=== PATIENT | male | born 1960 | race Caucasian/White ===

== ENCOUNTER 2019-03-29 10:41 | Emergency (ER) | payer MEDICARE ==
--- NOTE | 2019-03-29 10:48 | Emergency Department Record ---
History of Present Illness - General Chief Complaint: Back Pain/Injury Stated Complaint: BACK PAIN Time Seen by Provider: 03/29/19 10:47 Source: Patient Mode of Arrival: Ambulatory Limitations: No limitations - History of Present Illness Initial Comments: 59 yo male presents with back pain for about two weeks. No weakness, numbness, tingling. No changes in his bladder or bowel functions. No hematuria. The pain is located over the left flank lower on the left. No radiation to the legs. No abdominal pain or abdominal pulsations. The pain occurred two weeks ago with bending and twisting. He has chronic pain but states the location is different. He had back surgery in [place] 22 years ago. He states he does not have a designated PCP. MD Complaint: Back pain -: Week(s) (2) Place: Home Radiation: None Severity: Moderate Quality: Aching Consistency: Constant Improves With: Immobilization Worsens With: Movement, Walking Associated Symptoms: Denies other symptoms - Related Data Previous Rx's Medication Instructions Recorded Cyclobenzaprine HCl [Flexeril] 10 mg PO TID #20 tablet 03/29/19 Oxycodone HCl/Acetaminophen 1 tab PO Q6H PRN #8 tablet 03/29/19 [Percocet 10mg/325mg] Allergies Allergy/AdvReac Type Severity Reaction Status Date / Time ibuprofen AdvReac Mild NAUSEA AND Verified 03/29/19 10:51 VOMITING Review of Systems Constitutional: Denies: Chills, Fever, Malaise, Weakness Eyes: Denies: Eye discharge, Eye pain, Photophobia, Vision change ENT: Denies: Congestion, Throat pain Respiratory: Denies: Cough, Dyspnea, Hemoptysis, Wheezes Cardiovascular: Denies: Chest pain, Palpitations, Syncope Endocrine: Denies: Fatigue, Polydipsia, Polyuria Gastrointestinal: Denies: Abdominal pain, Diarrhea, Nausea, Vomiting Genitourinary: Denies: Dysuria, Frequency, Hematuria, Incontinence, Retention Musculoskeletal: Reports: As per HPI, Back pain, Myalgia. Denies: Joint swelling, Neck pain Skin: Denies: Bruising, Change in color, Rash Neurological: Denies: Abnormal gait, Confusion, Headache, Numbness, Paresthesias, Tingling, Tremors, Weakness Psychiatric: Denies: Anxiety Hematological/Lymphatic: Denies: Easy bleeding, Easy bruising, Swollen glands Past Medical History - SOCIAL HISTORY Smoking Status: Never smoker - RESPIRATORY Hx Respiratory Disorders: No - CARDIOVASCULAR Hx Cardio Disorders: Yes Hx Hypertension: Yes - NEURO Hx Neuro Disorders: No - GI Hx GI Disorders: Yes Hx Pancreatitis: Yes - Hx Genitourinary Disorders: No - ENDOCRINE Hx Endocrine Disorders: No - MUSCULOSKELETAL Hx Musculoskeletal Disorders: Yes Hx Back Injury: Yes - PSYCH Hx Psych Problems: No - HEMATOLOGY/ONCOLOGY Hx Hematology/Oncology Disorders: No Family Medical History Hx Cancer: Father, Mother, Grandparents Physical Exam - General General Appearance: Alert, Oriented x3, Cooperative, No acute distress Limitations: No limitations - Head Head exam: Atraumatic, Normal inspection - Eye Eye exam: Normal appearance, PERRL. negative: Conjunctival injection, Scleral icterus - ENT ENT exam: Normal exam, Mucous membranes moist Ear exam: Normal external inspection Nasal Exam: Normal inspection Mouth exam: Normal external inspection - Neck Neck exam: Normal inspection, Full ROM. negative: Tenderness - Respiratory Respiratory exam: Normal lung sounds bilaterally. negative: Decreased breath sounds, Prolonged expiratory, Respiratory distress, Rhonchi, Stridor, Wheezes - Cardiovascular Cardiovascular Exam: Regular rate, Normal rhythm, Normal heart sounds - GI/Abdominal GI/Abdominal exam: Soft. negative: Distended, Guarding, Pulsatile mass, Tenderness - Rectal Rectal exam: Deferred - exam: Deferred - Extremities Extremities exam: Normal inspection, Full ROM, Normal capillary refill. negative: Calf tenderness, Joint swelling, Pedal edema, Tenderness - Back Back exam: Reports: Normal inspection, Muscle spasm, Paraspinal tenderness, Tenderness, Vertebral tenderness. Denies: CVA tenderness (R), CVA tenderness ( L), Rash noted Image of Body Front/Back: 1 - tender to palpation, normal inspection - Neurological Neurological exam: Alert, Normal gait, Oriented X3, Reflexes normal, Other (foot flexion and extension intact, no foot drop, sensation intact, no abnormal warmth or coolness). negative: Abnormal gait, Altered, Motor sensory deficit - Psychiatric Psychiatric exam: Normal affect, Normal mood. negative: Agitated, Anxious - Skin Skin exam: Dry, Intact, Normal color, Warm Course - Reevaluation(s) Reevaluation #1: We discussed the results of the tests and questions were answered at the time of discharge. The patient is doing well and is comfortable with DC. DC vitals were reviewed. We discussed at length reasons to immediately return to the ED as well as close follow up. The patient will call the PCP for close follow up of this ED visit to review this visit and the tests performed 03/29/19 13:02 The patient was prescribed a controlled substance. The prescription does not exceed three days. MAPS was reviewed at the time of the prescripts The topics of abuse, addiction, over dose, dangers of multiple medications, disposal, and illegal distribution were discussed with the patient. The patient verbalized understanding of the risks of the medication being provided Disposition Disposition: Discharge Clinical Impression: Lumbar pain Disposition: Home, Self-Care Condition: (1) Good Instructions: Low Back Strain (ED) Additional Instructions: Call your doctor for the next available follow up appointment Review this ER visit and the tests performed with your family doctor Return to the ER for a recheck if worse, any new concerns or questions Take the prescriptions provided as directed Prescriptions: Cyclobenzaprine HCl [Flexeril] 10 mg PO TID #20 tablet Oxycodone HCl/Acetaminophen [Percocet 10mg/325mg] 1 tab PO Q6H PRN #8 tablet PRN Reason: Pain - Mild (1-4) Forms: Patient Portal Access Time of Disposition: 13:03 Quality - Quality Measures Quality Measures: N/A - Blood Pressure Screening Does Patient Have Any of the Following: No Blood Pressure Classification: Pre-Hypertensive BP Reading Systolic Measurement: 136 Diastolic Measurement: 85 Screening for High Blood Pressure: < Pre-Hypertensive BP, F/U Documented > [G8950] Pre-Hypertensive Follow-up Interventions: Referral to alternative/primary care provider.
[2019-03-29] MEDS ORDERED: MORPHINE SULFATE 10MG/1ML **1ML VIAL IM ONE (10:56)
[2019-03-29] MEDS ORDERED: ORPHENADRINE CITRATE 60MG/2ML VIAL IM ONE (11:34)
--- NOTE | 2019-03-29 15:05 | CT SCAN REPORT ---
EXAM: CT SCAN OF THE ABDOMEN AND PELVIS WITHOUT CONTRAST HISTORY: LEFT FLANK PAIN FOR TWO WEEKS. TECHNIQUE: Noncontrast CT scan of the abdomen and pelvis was obtained. Comparison: None. FINDINGS: The lung bases are clear. The liver, gallbladder, pancreas, and spleen are unremarkable. The biliary tree is not dilated. RETROPERITONEUM: The adrenal glands appear normal. Neither kidney shows stone, hydronephrosis, nephrolithiasis, or perinephric edema. The retroperitoneum shows no adenopathy or any mass. VASCULAR: The aorta shows no aneurysm. The IVC is unremarkable. The portal venous system is unremarkable. ABDOMINAL WALL: The musculature is intact. No sign of hernia. MESENTERY: There is no free air or free fluid. There is also no sign of any mesenteric lymphadenopathy. GI SYSTEM: The stomach, small bowel and colon are unremarkable. There is no distention or wall thickening. No sign of colitis or diverticulitis although there are diverticula in the sigmoid colon. The rectum appears normal. BLADDER: The bladder appears unremarkable. A portion of the bladder is obscured by artifact from the hip hardware. REPRODUCTIVE SYSTEM: The prostate gland is unremarkable. MUSCULOSKELETAL SYSTEM: There is no sign of suspicious lesions of the pelvis. Benign lytic changes in the posterior aspect of the right iliac bone are noted. There are degenerative changes of the lumbar spine. There is no sign of any postoperative complications in the lumbar spine. IMPRESSION: 1. NO SIGN OF OBSTRUCTIVE UROPATHY OR NEPHROLITHIASIS. 2. NO EVIDENCE OF ANY SPECIFIC ACUTE ABDOMEN OR PELVIS PATHOLOGY. JOB NUMBER: [id number] MTDD
== END 2019-03-29 13:14 | disposition home or self-care (01) ==
LOC: ER 10:41
DX: M54.5 Low back pain (principal); I10 Essential (primary) hypertension
CPT/HCPCS: 74176; 96372; 99284; J2270; J2360